=== PATIENT | male | born 1940 | race Caucasian/White ===

== ENCOUNTER 2020-12-28 15:53 | Inpatient (IN) ==
[2020-12-28] MEDS ORDERED: MORPHINE 4 MG/1 ML VIAL IV PRN (18:19)
[2020-12-28] MEDS ORDERED: DEXTROSE 50% 25 GM/50 ML VIAL IV PRN (18:19)
[2020-12-28] MEDS ORDERED: ONDANSETRON 4 MG/2 ML VIAL IV PRN (18:19)
[2020-12-28] MEDS ORDERED: GLUCAGON 1 MG VIAL IM PRN (18:19)
[2020-12-28] MEDS ORDERED: ENOXAPARIN 100 MG/ML SYRINGE SUBCUT ONE (18:19)
[2020-12-28] MEDS ORDERED: ACETAMINOPHEN 325 MG TABLET PO PRN (18:19)
[2020-12-28] MEDS: SODIUM CHLORIDE 0.9% 1,000 ML IV SCH (18:36)
[2020-12-28 19:23] LABS: Risk Ratio 6.43; Thyroid Stimulating Hormone 1.33 uIU/ml (0.358-3.74); VLDL CHOLESTEROL 39.6 MG/DL
[2020-12-28] MEDS: carvediloL 3.125 MG TABLET PO SCH (21:13)
[2020-12-28] MEDS: ATORVASTATIN 40 MG TABLET PO SCH (21:13)
[2020-12-29 05:18] LABS: Basophils # 0.1 10*3/uL (0.0-0.2); Eosinophils # 0.2 10*3/uL (0.0-0.87); Eosinophils % 3.2 % (0.00-10.9); Hematocrit 40.9 VOL% (42.0-52.0); Hemoglobin 13.6 GM/DL (14.0-18.0); Immature Granulocytes % 0.4 %; Immature Granulocytes Absolute 0.02 #; Lymphocytes # 1.9 10*3/uL (1.4-4.0); Lymphocytes % 37.9 % (21.2-54.2); Mean Corpuscular HGB Conc 33.3 GM/DL (32-36); Mean Platelet Volume 11.5 FL (9.6-12.0); Monocytes % 12.7 % (1.7-12.7); Neutrophils % 44.8 % (38.7-73.9); Platelet Count 151 T/CUMM (130-400); Red Blood Count 4.09 MC/CUMM (3.8-5.5); Red Cell Distribution Width 12.5 % (9.3-17.3)
[2020-12-29 05:38] LABS: Calcium 7.9 MG/DL (8.5-10.1); Potassium 3.4 MMOL/L (3.5-5.1)
[2020-12-29] MEDS ORDERED: ENOXAPARIN 100 MG/ML SYRINGE SUBCUT SCH (06:00)
[2020-12-29] MEDS ORDERED: DIAZEPAM 5 MG TABLET PO ONE (08:33)
[2020-12-29] MEDS ORDERED: diphenhydrAMINE CAP 25 MG CAPSULE PO ONE (08:33)
[2020-12-29] MEDS ORDERED: MAGNESIUM SULF RIDER 2 GM/50 ML PREMIX IV PRN (08:33)
[2020-12-29] MEDS ORDERED: POTASSIUM CHLORIDE RIDER 10 MEQ/100 ML PREMIX IV PRN (08:33)
[2020-12-29] MEDS ORDERED: ASPIRIN CHEW 81 MG TABLET PO SCH (09:00)
[2020-12-29] MEDS: lisinopriL 2.5 MG TABLET PO SCH (09:39)
[2020-12-29] MEDS: SODIUM CHLORIDE 0.9% 1,000 ML IV SCH ×2 (09:39→20:34)
[2020-12-29] MEDS: carvediloL 3.125 MG TABLET PO SCH ×2 (09:39→23:33)
[2020-12-29] MEDS: PANTOPRAZOLE 40 MG TABLET PO SCH (09:39)
[2020-12-29] MEDS ORDERED: HEPARIN/NACL 0.9% 2 UNITS/ML 2,000 UNIT/1,000 ML BAG IV ONE (11:58)
[2020-12-29] MEDS ORDERED: LIDOCAINE 1% 20 ML VIAL ONE (11:58)
[2020-12-29] MEDS ORDERED: fentaNYL 100 MCG/2 ML VIAL ONE (12:12)
[2020-12-29] MEDS ORDERED: MIDAZOLAM 2 MG/2 ML VIAL ONE (12:12)
[2020-12-29] MEDS ORDERED: ACETAMINOPHEN/CODEINE 300-30 MG TABLET PO PRN (12:53)
[2020-12-29] MEDS: NITROGLYCERIN SL 0.4 MG TABLET SL PRN (16:18)
[2020-12-29] MEDS: ATORVASTATIN 40 MG TABLET PO SCH (20:23)
[2020-12-30 06:23] LABS: Basophils % 0.5 % (0.0-0.8); Eosinophils # 0.2 10*3/uL (0.0-0.87); Eosinophils % 2.7 % (0.00-10.9); Hematocrit 42.8 VOL% (42.0-52.0); Hemoglobin 13.9 GM/DL (14.0-18.0); Immature Granulocytes % 0.4 %; Immature Granulocytes Absolute 0.02 #; Lymphocytes # 1.5 10*3/uL (1.4-4.0); Lymphocytes % 26.7 % (21.2-54.2); Mean Corpuscular HGB Conc 32.5 GM/DL (32-36); Mean Corpuscular Volume 100.5 FL (87-102); Mean Platelet Volume 11.6 FL (9.6-12.0); Monocytes % 13.2 % (1.7-12.7); Neutrophils % 56.5 % (38.7-73.9); Platelet Count 135 T/CUMM (130-400); Red Blood Count 4.26 MC/CUMM (3.8-5.5); Red Cell Distribution Width 12.5 % (9.3-17.3); White Blood Count 5.5 T/CUMM (4-12)
[2020-12-30 06:38] LABS: Calcium 8.7 MG/DL (8.5-10.1); Osmolality,Calculated 283.3 MOS/KG (273-304); Potassium 3.9 MMOL/L (3.5-5.1)
[2020-12-30] MEDS ORDERED: ENOXAPARIN 40 MG/0.4 ML SYRINGE SUBCUT ONE (07:36)
[2020-12-30] MEDS: lisinopriL 2.5 MG TABLET PO SCH (09:10)
[2020-12-30] MEDS: ASPIRIN 325 MG TABLET PO SCH (09:11)
[2020-12-30] MEDS: carvediloL 3.125 MG TABLET PO SCH ×2 (09:11→20:31)
[2020-12-30] MEDS: ISOSORBIDE MONONITRATE 30 MG TABLET PO SCH (09:11)
[2020-12-30] MEDS: PANTOPRAZOLE 40 MG TABLET PO SCH (09:11)
[2020-12-30] MEDS ORDERED: CLORAZEPATE 7.5 MG TABLET PO PRN (16:50)
[2020-12-30] MEDS ORDERED: ZALEPLON 5 MG CAPSULE PO PRN (16:50)
[2020-12-30] MEDS: ATORVASTATIN 40 MG TABLET PO SCH (20:30)
[2020-12-30] MEDS: ENOXAPARIN 100 MG/ML SYRINGE SUBCUT SCH (20:31)
[2020-12-30] MEDS: ASCORBIC ACID 500 MG TABLET PO SCH (20:31)
[2020-12-31] MEDS: ASPIRIN 325 MG TABLET PO SCH (08:38)
[2020-12-31] MEDS: ISOSORBIDE MONONITRATE 30 MG TABLET PO SCH (08:38)
[2020-12-31] MEDS: lisinopriL 2.5 MG TABLET PO SCH (08:38)
[2020-12-31] MEDS: ASCORBIC ACID 500 MG TABLET PO SCH ×2 (08:39→21:09)
[2020-12-31] MEDS: ENOXAPARIN 100 MG/ML SYRINGE SUBCUT SCH ×2 (08:39→21:09)
[2020-12-31] MEDS: PANTOPRAZOLE 40 MG TABLET PO SCH (08:39)
[2020-12-31] MEDS: carvediloL 3.125 MG TABLET PO SCH ×2 (08:39→21:09)
[2020-12-31] MEDS ORDERED: ENOXAPARIN 40 MG/0.4 ML SYRINGE SUBCUT SCH (09:00)
[2020-12-31] MEDS: NITROGLYCERIN SL 0.4 MG TABLET SL PRN ×2 (19:31→19:41)
[2020-12-31] MEDS: ATORVASTATIN 40 MG TABLET PO SCH (21:09)
[2020-12-31] MEDS: diphenhydrAMINE CAP 50 MG CAPSULE PO PRN (21:09)
[2020-12-31] MEDS: MELATONIN 3 MG TABLET PO PRN (21:09)
[2021-01-01 09:08] LABS: Basophils % 0.8 % (0.0-0.8); Eosinophils # 0.1 10*3/uL (0.0-0.87); Eosinophils % 2.7 % (0.00-10.9); Hematocrit 44.4 VOL% (42.0-52.0); Hemoglobin 14.6 GM/DL (14.0-18.0); Immature Granulocytes % 0.2 %; Immature Granulocytes Absolute 0.01 #; Lymphocytes # 1.4 10*3/uL (1.4-4.0); Lymphocytes % 26.7 % (21.2-54.2); Mean Corpuscular HGB Conc 32.9 GM/DL (32-36); Mean Corpuscular Volume 100.2 FL (87-102); Mean Platelet Volume 11.3 FL (9.6-12.0); Monocytes % 10.3 % (1.7-12.7); Neutrophils % 59.3 % (38.7-73.9); Platelet Count 146 T/CUMM (130-400); Red Blood Count 4.43 MC/CUMM (3.8-5.5); Red Cell Distribution Width 12.3 % (9.3-17.3); White Blood Count 5.1 T/CUMM (4-12)
[2021-01-01] MEDS: ISOSORBIDE MONONITRATE 30 MG TABLET PO SCH (09:16)
[2021-01-01] MEDS: PANTOPRAZOLE 40 MG TABLET PO SCH (09:17)
[2021-01-01] MEDS: lisinopriL 2.5 MG TABLET PO SCH (09:17)
[2021-01-01] MEDS: ASCORBIC ACID 500 MG TABLET PO SCH ×2 (09:17→20:52)
[2021-01-01] MEDS: ASPIRIN 325 MG TABLET PO SCH (09:18)
[2021-01-01] MEDS: carvediloL 3.125 MG TABLET PO SCH ×2 (09:18→23:47)
[2021-01-01] MEDS: ENOXAPARIN 100 MG/ML SYRINGE SUBCUT SCH ×2 (09:18→20:52)
[2021-01-01 09:22] LABS: Calcium 9.1 MG/DL (8.5-10.1); Osmolality,Calculated 284.4 MOS/KG (273-304); Potassium 4.1 MMOL/L (3.5-5.1)
[2021-01-01] MEDS: MELATONIN 3 MG TABLET PO PRN (20:51)
[2021-01-01] MEDS: ATORVASTATIN 40 MG TABLET PO SCH (20:52)
[2021-01-01] MEDS: diphenhydrAMINE CAP 50 MG CAPSULE PO PRN (20:52)
[2021-01-02] MEDS: PANTOPRAZOLE 40 MG TABLET PO SCH (09:07)
[2021-01-02] MEDS: ISOSORBIDE MONONITRATE 30 MG TABLET PO SCH (09:07)
[2021-01-02] MEDS: ASCORBIC ACID 500 MG TABLET PO SCH ×2 (09:07→20:34)
[2021-01-02] MEDS: ASPIRIN 325 MG TABLET PO SCH (09:07)
[2021-01-02] MEDS: carvediloL 3.125 MG TABLET PO SCH (09:08)
[2021-01-02 09:30] LABS: Basophils % 0.8 % (0.0-0.8); Eosinophils # 0.2 10*3/uL (0.0-0.87); Eosinophils % 3.3 % (0.00-10.9); Hemoglobin 14.3 GM/DL (14.0-18.0); Immature Granulocytes % 0.2 %; Immature Granulocytes Absolute 0.01 #; Lymphocytes # 1.5 10*3/uL (1.4-4.0); Mean Corpuscular HGB Conc 33.3 GM/DL (32-36); Mean Corpuscular Volume 98.6 FL (87-102); Mean Platelet Volume 11.5 FL (9.6-12.0); Monocytes % 7.4 % (1.7-12.7); Neutrophils % 58.3 % (38.7-73.9); Platelet Count 157 T/CUMM (130-400); Red Blood Count 4.36 MC/CUMM (3.8-5.5); Red Cell Distribution Width 12.2 % (9.3-17.3); White Blood Count 4.8 T/CUMM (4-12)
[2021-01-02 10:24] LABS: Calcium 8.9 MG/DL (8.5-10.1); Osmolality,Calculated 283.7 MOS/KG (273-304); Potassium 3.8 MMOL/L (3.5-5.1)
[2021-01-02] MEDS ORDERED: POTASSIUM CHLORIDE 20 MEQ TABLET PO PRN (10:42)
[2021-01-02] MEDS ORDERED: MAGNESIUM SULF RIDER 2 GM/50 ML PREMIX IV PRN (10:47)
[2021-01-02] MEDS: MELATONIN 3 MG TABLET PO PRN (20:34)
[2021-01-02] MEDS: diphenhydrAMINE CAP 50 MG CAPSULE PO PRN (20:34)
[2021-01-02] MEDS: ATORVASTATIN 40 MG TABLET PO SCH (20:34)
[2021-01-03 05:07] LABS: Basophils # 0.1 10*3/uL (0.0-0.2); Basophils % 0.9 % (0.0-0.8); Eosinophils # 0.3 10*3/uL (0.0-0.87); Eosinophils % 4.5 % (0.00-10.9); Hematocrit 43.2 VOL% (42.0-52.0); Hemoglobin 14.4 GM/DL (14.0-18.0); Immature Granulocytes % 0.4 %; Immature Granulocytes Absolute 0.02 #; Lymphocytes # 1.6 10*3/uL (1.4-4.0); Lymphocytes % 29.2 % (21.2-54.2); Mean Corpuscular HGB Conc 33.3 GM/DL (32-36); Mean Corpuscular Volume 98.6 FL (87-102); Mean Platelet Volume 11.6 FL (9.6-12.0); Monocytes % 14.6 % (1.7-12.7); Neutrophils % 50.4 % (38.7-73.9); Platelet Count 161 T/CUMM (130-400); Red Blood Count 4.38 MC/CUMM (3.8-5.5); Red Cell Distribution Width 12.3 % (9.3-17.3); White Blood Count 5.5 T/CUMM (4-12)
[2021-01-03 05:55] LABS: Osmolality,Calculated 283.3 MOS/KG (273-304); Potassium 4.2 MMOL/L (3.5-5.1)
[2021-01-03 05:59] LABS: Albumin 3.5 G/DL (3.4-5.0); Bilirubin,Total 1.1 MG/DL (0.2-1.0); Calcium 8.9 MG/DL (8.5-10.1); Osmolality,Calculated 283.3 MOS/KG (273-304); Potassium 4.2 MMOL/L (3.5-5.1); Total Protein 7.2 G/DL (6.4-8.2)
[2021-01-03] MEDS: ASCORBIC ACID 500 MG TABLET PO SCH ×2 (08:26→20:30)
[2021-01-03] MEDS: ASPIRIN 325 MG TABLET PO SCH (08:26)
[2021-01-03] MEDS: PANTOPRAZOLE 40 MG TABLET PO SCH (08:27)
[2021-01-03] MEDS: ISOSORBIDE MONONITRATE 30 MG TABLET PO SCH (08:27)
[2021-01-03] MEDS: CHLORHEXIDINE 0.12% ORAL RINSE 60 ML BOTTLE SWISH/SPIT SCH ×2 (08:29→20:32)
[2021-01-03] MEDS: CHLORHEXIDINE 4% SOLN 118 ML BOTTLE TOP SCH ×2 (08:30→15:48)
[2021-01-03 09:46] LABS: ABG Base Excess -0.2 MMOL/L (-2.5-2.5); ABG HCO3 24.2 MMOL/L (20-26); ABG Oxygen Saturation 97.5 % (95-100); ABG PH 7.396 (7.35-7.45); ABG PO2 91.2 MM HG (80-95); ABG TCO2 20.8 MMOL/L (23-27); Allen Test Positive; Pt O2 Delivery Device Room Air
[2021-01-03] MEDS ORDERED: SODIUM CHLORIDE 0.9% 1,000 ML IV SCH (12:00)
[2021-01-03] MEDS: ATORVASTATIN 40 MG TABLET PO SCH (20:30)
[2021-01-03] MEDS: MELATONIN 3 MG TABLET PO PRN (20:32)
[2021-01-03] MEDS: diphenhydrAMINE CAP 50 MG CAPSULE PO PRN (20:32)
[2021-01-04] MEDS ORDERED: PAPAVERINE 60 MG/2 ML VIAL ONE (04:21)
[2021-01-04] MEDS ORDERED: VANCOMYCIN 1,000 MG VIAL ONE (04:22)
[2021-01-04] MEDS ORDERED: VANCOMYCIN 500 MG VIAL ONE (04:22)
[2021-01-04] MEDS ORDERED: CEFUROXIME INJ 1,500 MG in SODIUM CHLORIDE 0.9% 100 ML IV ONE (05:00)
[2021-01-04] MEDS: CHLORHEXIDINE 4% SOLN 118 ML BOTTLE TOP SCH (05:25)
[2021-01-04] MEDS ORDERED: DIAZEPAM 5 MG TABLET PO ONE (06:00)
[2021-01-04] MEDS ORDERED: SEVOFLURANE 1 UNIT/15 MINUTE INH ONE (06:08)
[2021-01-04] MEDS ORDERED: SODIUM CHLORIDE 0.9% 1,000 ML IV ONE (06:08)
[2021-01-04] MEDS ORDERED: MINERAL OIL/PETROLATUM OPH OINT 3.5 GM TUBE ONE (06:08)
[2021-01-04] MEDS ORDERED: HEPARIN/NACL 0.9% 2 UNITS/ML 1,000 UNIT/500 ML BAG IV ONE (06:08)
[2021-01-04] MEDS ORDERED: SODIUM CHLORIDE 0.9% 200 ML IV ONE (06:08)
[2021-01-04] MEDS ORDERED: LACTATED RINGERS 1,000 ML IV ONE (06:08)
[2021-01-04] MEDS ORDERED: PHENYLEPHRINE 10 MG/1 ML VIAL IV ONE (06:10)
[2021-01-04 06:12] LABS: Calcium 9.2 MG/DL (8.5-10.1); Osmolality,Calculated 286.1 MOS/KG (273-304); Potassium 4.2 MMOL/L (3.5-5.1)
[2021-01-04] MEDS ORDERED: SODIUM CHLORIDE 0.9% 250 ML IV ONE ×2 (06:13)
[2021-01-04] MEDS ORDERED: AMINOCAPROIC ACID 5,000 MG/20 ML VIAL ONE ×4 (06:14)
[2021-01-04] MEDS ORDERED: CALCIUM CHLORIDE 1,000 MG/10 ML VIAL IV ONE (06:16)
[2021-01-04] MEDS ORDERED: VECURONIUM 10 MG VIAL IV ONE ×4 (06:17→09:34)
[2021-01-04] MEDS ORDERED: ETOMIDATE 40 MG/20 ML VIAL IV ONE (06:18)
[2021-01-04] MEDS ORDERED: LIDOCAINE 2% 5 ML VIAL ONE ×2 (06:20→10:45)
[2021-01-04] MEDS ORDERED: MIDAZOLAM 10 MG/2 ML VIAL ONE ×4 (06:21→09:34)
[2021-01-04] MEDS ORDERED: SUFentanil 250 MCG/5 ML AMP ONE ×2 (06:22→07:47)
[2021-01-04] MEDS ORDERED: ePHEDrine 50 MG/ML VIAL ONE (07:03)
[2021-01-04 07:33] LABS: ABG Base Excess 0.8 MMOL/L (-2.5-2.5); ABG HCO3 25.1 MMOL/L (20-26); ABG PCO2 33.6 MM HG (35-48); ABG PH 7.461 (7.35-7.45); ABG TCO2 20.7 MMOL/L (23-27); Glucose Heart Surgery 101 MG/DL (74-106); Hematocrit Heart Surgery 41.3 PERCENT (42-52); Hemoglobin Heart Surgery 13.5 G/DL (14.0-18.0); Ionized Calcium Arterial 1.13 MMOL/L (1.21-1.46); PCO2 Patient Temp Arterial 33.6 MMHG; PH Patient Temp Arterial 7.461; Patient Temperature 37 CELCIUS; Sodium Heart/CVR 139 MMOL/L (135-145)
[2021-01-04 08:46] LABS: Bacteria,Urine Occasional /HPF (Few); Bilirubin,Urine Negative (Negative); Blood, Urine Negative (Negative); Glucose,Urine (UA) Negative (Negative); Ketones,Urine Negative (Negative); Mucus,Urine Many /LPF (Occasional); Nitrite,Urine Negative (Negative); Protein,Urine Negative; RBC,Urine 1 /HPF (0-4); Urine Appearance CLEAR (Clear); Urine Color Yellow (Yellow); Urine Specific Gravity 1.017 (1.001-1.035); Urine Urobilinogen < 2.0 EU/DL (0.2-1.0)
[2021-01-04] MEDS: CHLORHEXIDINE 0.12% ORAL RINSE 60 ML BOTTLE SWISH/SPIT SCH ×2 (09:00→21:04)
[2021-01-04] MEDS: PANTOPRAZOLE 40 MG TABLET PO SCH (09:00)
[2021-01-04] MEDS: ASPIRIN 325 MG TABLET PO SCH (09:00)
[2021-01-04] MEDS: ISOSORBIDE MONONITRATE 30 MG TABLET PO SCH (09:00)
[2021-01-04] MEDS: ASCORBIC ACID 500 MG TABLET PO SCH (09:00)
[2021-01-04 09:08] LABS: Hematocrit Heart Surgery 29.9 PERCENT (42-52); Hemoglobin Heart Surgery 9.7 G/DL (14.0-18.0); PCO2 Patient Temp Venous 32.7 MM HG; PH Patient Temp Venous 7.486; PO2 Patient Temp Venous 39.7 MM HG; Potassium Heart/CVR 5.1 MMOL/L (3.5-5.1); VBG Base Excess 1.7 MEQ/L (0-4); VBG HCO3 25.8 MEQ/L (24-28); VBG Oxygen Saturation 87.1 %; VBG PCO2 37.8 MMHG (41-51); VBG PH 7.442; VBG PO2 48.8 MMHG (17-40); VBG Total CO2 23.5 MMOL/L
[2021-01-04] MEDS ORDERED: diphenhydrAMINE 50 MG/1 ML VIAL ONE (09:34)
[2021-01-04 09:40] LABS: Hemoglobin Heart Surgery 10.4 G/DL (14.0-18.0); PCO2 Patient Temp Venous 34.2 MM HG; PH Patient Temp Venous 7.463; PO2 Patient Temp Venous 39.4 MM HG; Potassium Heart/CVR 4.6 MMOL/L (3.5-5.1); VBG Base Excess 1.1 MEQ/L (0-4); VBG HCO3 25.2 MEQ/L (24-28); VBG Oxygen Saturation 85.3 %; VBG PCO2 39.5 MMHG (41-51); VBG PH 7.419; VBG PO2 48.4 MMHG (17-40); VBG Total CO2 23.2 MMOL/L
[2021-01-04] MEDS ORDERED: FAMOTIDINE 20 MG/2 ML VIAL IV ONE (09:52)
[2021-01-04 10:11] LABS: Hematocrit Heart Surgery 33.9 PERCENT (42-52); PCO2 Patient Temp Venous 36.1 MM HG; PH Patient Temp Venous 7.452; PO2 Patient Temp Venous 38.5 MM HG; Potassium Heart/CVR 4.9 MMOL/L (3.5-5.1); VBG Base Excess 1.5 MEQ/L (0-4); VBG HCO3 25.3 MEQ/L (24-28); VBG Oxygen Saturation 76.7 %; VBG PCO2 36.1 MMHG (41-51); VBG PH 7.452; VBG PO2 38.5 MMHG (17-40); VBG Total CO2 22.6 MMOL/L
[2021-01-04] MEDS ORDERED: MANNITOL 100 GM/500 ML BAG IV ONE (10:45)
[2021-01-04] MEDS ORDERED: MAGNESIUM SULFATE 5 GM/10 ML VIAL IV ONE (10:45)
[2021-01-04] MEDS ORDERED: ALBUMIN 25% 25 GM/100 ML VIAL IV ONE (10:45)
[2021-01-04] MEDS ORDERED: DEXTROSE 5% KCL 20 MEQ 20 MEQ/1,000 ML BAG IV ONE (10:45)
[2021-01-04] MEDS ORDERED: PROTAMINE SULFATE 250 MG/25 ML VIAL IV ONE (10:45)
[2021-01-04] MEDS ORDERED: methylPREDNISolone SOD SUC 1,000 MG/8 ML VIAL ONE (10:45)
[2021-01-04] MEDS ORDERED: HEPARIN 10,000 UNIT/10 ML VIAL ONE (10:46)
[2021-01-04] MEDS ORDERED: PROTAMINE SULFATE 50 MG/5 ML VIAL IV ONE ×2 (10:46→12:09)
[2021-01-04] MEDS ORDERED: SODIUM BICARBONATE 50 MEQ/50 ML VIAL IV ONE ×2 (10:46→11:15)
[2021-01-04] MEDS ORDERED: FUROSEMIDE 20 MG/2 ML VIAL ONE (10:46)
[2021-01-04 10:51] LABS: ABG Base Excess -0.5 MMOL/L (-2.5-2.5); ABG PCO2 32.9 MM HG (35-48); ABG PH 7.448 (7.35-7.45); ABG TCO2 20.2 MMOL/L (23-27); Glucose Heart Surgery 188 MG/DL (74-106); Hematocrit Heart Surgery 35.9 PERCENT (42-52); Hemoglobin Heart Surgery 11.6 G/DL (14.0-18.0); Ionized Calcium Arterial 1.27 MMOL/L (1.21-1.46); PCO2 Patient Temp Arterial 32.9 MMHG; PH Patient Temp Arterial 7.448; Patient Temperature 37 CELCIUS; Potassium Heart/CVR 3.7 MMOL/L (3.5-5.1); Sodium Heart/CVR 135 MMOL/L (135-145)
[2021-01-04] MEDS ORDERED: MORPHINE 10 MG/1 ML VIAL IV PRN (11:10)
[2021-01-04] MEDS ORDERED: MAGNESIUM SULF RIDER 2 GM/50 ML PREMIX IV PRN (11:10)
[2021-01-04] MEDS ORDERED: POTASSIUM CHLORIDE RIDER 10 MEQ/100 ML PREMIX IV PRN (11:10)
[2021-01-04] MEDS ORDERED: MORPHINE 4 MG/1 ML VIAL IV PRN (11:10)
[2021-01-04] MEDS ORDERED: MAGNESIUM SULF RIDER 4 GM/100 ML PREMIX IV PRN (11:10)
[2021-01-04] MEDS ORDERED: VECURONIUM 10 MG VIAL IV PRN ×2 (11:10)
[2021-01-04] MEDS ORDERED: CHLORHEXIDINE 4% SOLN 118 ML BOTTLE TOP PRN (11:10)
[2021-01-04] MEDS ORDERED: ACETAMINOPHEN 650 MG SUPP RECTAL PRN (11:10)
[2021-01-04] MEDS ORDERED: MIDAZOLAM 10 MG/2 ML VIAL IV PRN (11:10)
[2021-01-04] MEDS ORDERED: DEXTROSE 50% 25 GM/50 ML VIAL IV PRN ×2 (11:10)
[2021-01-04] MEDS ORDERED: INSULIN REGULAR 100 UNIT/ML IV PRN (11:10)
[2021-01-04] MEDS ORDERED: INSULIN REGULAR 100 UNIT/ML IV ONE (11:10)
[2021-01-04] MEDS ORDERED: CALCIUM CHLORIDE 1,000 MG/10 ML SYRINGE IV PRN (11:10)
[2021-01-04] MEDS ORDERED: PHENYLEPHRINE DRIP 40 MG/250 ML PREMIX IV PRN (11:10)
[2021-01-04] MEDS ORDERED: ONDANSETRON 4 MG/2 ML VIAL IV PRN (11:10)
[2021-01-04] MEDS ORDERED: NITROPRUSSIDE 100 MG in DEXTROSE 5% 250 ML IV PRN (11:10)
[2021-01-04] MEDS ORDERED: NITROPRUSSIDE 50 MG/2 ML VIAL ONE (11:15)
[2021-01-04] MEDS ORDERED: SODIUM CHLORIDE 0.45% 1,000 ML IV SCH ×2 (11:30)
[2021-01-04] MEDS ORDERED: INSULIN REGULAR DRIP 100 ML IV SCH (11:30)
[2021-01-04 12:12] LABS: ABG HCO3 25.3 MMOL/L (20-26); ABG Oxygen Saturation 99.1 % (95-100); ABG PH 7.478 (7.35-7.45); ABG TCO2 20.5 MMOL/L (23-27); Glucose Heart Surgery 167 MG/DL (74-106); Hemoglobin Heart Surgery 13.4 G/DL (14.0-18.0); Potassium Heart/CVR 3.4 MMOL/L (3.5-5.1)
[2021-01-04 12:14] LABS: Basophils % 0.2 % (0.0-0.8); Eosinophils # 0.1 10*3/uL (0.0-0.87); Hematocrit 39.1 VOL% (42.0-52.0); Immature Granulocytes % 1.1 %; Immature Granulocytes Absolute 0.09 #; Lymphocytes % 11.5 % (21.2-54.2); Mean Corpuscular HGB Conc 33.2 GM/DL (32-36); Mean Platelet Volume 11.8 FL (9.6-12.0); Monocytes % 11.5 % (1.7-12.7); Neutrophils % 74.7 % (38.7-73.9); Platelet Count 127 T/CUMM (130-400); Red Blood Count 3.95 MC/CUMM (3.8-5.5); Red Cell Distribution Width 12.3 % (9.3-17.3); White Blood Count 8.4 T/CUMM (4-12)
[2021-01-04] MEDS: POTASSIUM CHLORIDE RIDER 20 MEQ/100 ML PREMIX IV PRN ×6 (12:15→22:50)
[2021-01-04 12:24] LABS: INR 1.2; Partial Thromboplastin Time 27.1 SECS (23.9-33.8)
[2021-01-04] MEDS: ALBUMIN 5% 12.5 GM/250 ML VIAL IV PRN ×3 (12:30→21:26)
[2021-01-04 12:32] LABS: CKMB % 7.8 %
[2021-01-04 12:35] LABS: High Sensitive Troponin I* 13812.2 ng/L (0-78)
[2021-01-04 12:43] LABS: Albumin 3.7 G/DL (3.4-5.0); Bilirubin,Total 1.1 MG/DL (0.2-1.0); Calcium 9.2 MG/DL (8.5-10.1); Osmolality,Calculated 280.7 MOS/KG (273-304); Potassium 3.5 MMOL/L (3.5-5.1); Total Protein 6.9 G/DL (6.4-8.2)
[2021-01-04 14:01] LABS: ABG Base Excess 0.4 MMOL/L (-2.5-2.5); ABG HCO3 24.8 MMOL/L (20-26); ABG PCO2 30.2 MM HG (35-48); ABG PH 7.488 (7.35-7.45); Glucose Heart Surgery 179 MG/DL (74-106); Hematocrit Heart Surgery 38.1 PERCENT (42-52); Hemoglobin Heart Surgery 12.4 G/DL (14.0-18.0)
[2021-01-04 15:55] LABS: ABG Base Excess -0.6 MMOL/L (-2.5-2.5); ABG HCO3 23.9 MMOL/L (20-26); ABG PCO2 36.7 MM HG (35-48); ABG PH 7.416 (7.35-7.45); ABG PO2 98.9 MM HG (80-95); Glucose Heart Surgery 171 MG/DL (74-106); Hematocrit Heart Surgery 35.9 PERCENT (42-52); Hemoglobin Heart Surgery 11.6 G/DL (14.0-18.0)
[2021-01-04] MEDS: MIDAZOLAM 2 MG/2 ML VIAL IV PRN ×3 (15:58→19:10)
[2021-01-04] MEDS: LACTATED RINGERS 250 ML IV PRN ×2 (16:00→17:25)
[2021-01-04 18:09] LABS: ABG HCO3 23.5 MMOL/L (20-26); ABG PCO2 42.4 MM HG (35-48); ABG PH 7.367 (7.35-7.45); ABG TCO2 21.7 MMOL/L (23-27); Glucose Heart Surgery 160 MG/DL (74-106); Hematocrit Heart Surgery 35.7 PERCENT (42-52); Hemoglobin Heart Surgery 11.6 G/DL (14.0-18.0); Potassium Heart/CVR 4.4 MMOL/L (3.5-5.1)
[2021-01-04] MEDS ORDERED: FUROSEMIDE 40 MG/4 ML VIAL IV ONE ×2 (18:25→19:00)
[2021-01-04] MEDS ORDERED: FUROSEMIDE 20 MG/2 ML VIAL IV PRN (18:26)
[2021-01-04] MEDS ORDERED: FUROSEMIDE 40 MG/4 ML VIAL IV PRN ×2 (18:34→19:00)
[2021-01-04] MEDS: CEFUROXIME INJ 1,500 MG in SODIUM CHLORIDE 0.9% 100 ML IV SCH (18:55)
[2021-01-04] MEDS ORDERED: FUROSEMIDE 20 MG/2 ML VIAL IV ONE (19:00)
[2021-01-04] MEDS ORDERED: HALOPERIDOL 5 MG/ML AMP IV ONE (20:19)
[2021-01-04 20:34] LABS: ABG Base Excess -1.2 MMOL/L (-2.5-2.5); ABG HCO3 23.5 MMOL/L (20-26); ABG Oxygen Saturation 99.8 % (95-100); ABG PCO2 38.9 MM HG (35-48); ABG TCO2 21.1 MMOL/L (23-27); Glucose Heart Surgery 145 MG/DL (74-106); Hematocrit Heart Surgery 34.1 PERCENT (42-52); Potassium Heart/CVR 4.2 MMOL/L (3.5-5.1)
[2021-01-04 21:49] LABS: High Sensitive Troponin I* 9526.8 ng/L (0-78)
[2021-01-04 22:46] LABS: ABG Base Excess 0.1 MMOL/L (-2.5-2.5); ABG HCO3 24.5 MMOL/L (20-26); ABG PH 7.393 (7.35-7.45); ABG PO2 99.5 MM HG (80-95); ABG TCO2 22.4 MMOL/L (23-27); Glucose Heart Surgery 129 MG/DL (74-106); Hematocrit Heart Surgery 34.1 PERCENT (42-52); Hemoglobin Heart Surgery 11.1 G/DL (14.0-18.0)
[2021-01-05 00:34] LABS: ABG Base Excess -0.3 MMOL/L (-2.5-2.5); ABG HCO3 24.2 MMOL/L (20-26); ABG Oxygen Saturation 98.6 % (95-100); ABG PCO2 39.1 MM HG (35-48); ABG PH 7.402 (7.35-7.45); ABG TCO2 21.8 MMOL/L (23-27); Glucose Heart Surgery 118 MG/DL (74-106); Hematocrit Heart Surgery 34.2 PERCENT (42-52); Hemoglobin Heart Surgery 11.1 G/DL (14.0-18.0); Potassium Heart/CVR 4.2 MMOL/L (3.5-5.1)
[2021-01-05] MEDS: POTASSIUM CHLORIDE RIDER 20 MEQ/100 ML PREMIX IV PRN ×2 (00:44→04:29)
[2021-01-05 04:12] LABS: ABG Base Excess -0.4 MMOL/L (-2.5-2.5); ABG HCO3 24.1 MMOL/L (20-26); ABG Oxygen Saturation 97.4 % (95-100); ABG PCO2 38.9 MM HG (35-48); ABG PH 7.401 (7.35-7.45); ABG PO2 89.8 MM HG (80-95); ABG TCO2 21.8 MMOL/L (23-27); Glucose Heart Surgery 143 MG/DL (74-106); Hematocrit Heart Surgery 33.1 PERCENT (42-52); Hemoglobin Heart Surgery 10.7 G/DL (14.0-18.0); Potassium Heart/CVR 4.2 MMOL/L (3.5-5.1)
[2021-01-05 04:16] LABS: Basophils % 0.1 % (0.0-0.8); Hematocrit 32.5 VOL% (42.0-52.0); Hemoglobin 10.6 GM/DL (14.0-18.0); Immature Granulocytes % 0.5 %; Immature Granulocytes Absolute 0.07 #; Lymphocytes # 0.8 10*3/uL (1.4-4.0); Mean Corpuscular HGB Conc 32.6 GM/DL (32-36); Mean Corpuscular Volume 101.2 FL (87-102); Monocytes % 4.4 % (1.7-12.7); Platelet Count 148 T/CUMM (130-400); Red Blood Count 3.21 MC/CUMM (3.8-5.5); Red Cell Distribution Width 12.4 % (9.3-17.3); White Blood Count 13.3 T/CUMM (4-12)
[2021-01-05 04:36] LABS: Hypochromasia 1+; Lymphocytes 3 % (20-55); Microcytosis 1+; Platelet Estimate Adequate; Segmented Neutrophils 93 % (50-85); Total Cells Counted 100
[2021-01-05 04:53] LABS: Calcium 8.6 MG/DL (8.5-10.1); Osmolality,Calculated 281.5 MOS/KG (273-304); Potassium 4.4 MMOL/L (3.5-5.1)
[2021-01-05 04:57] LABS: Albumin 3.7 G/DL (3.4-5.0); Bilirubin,Direct 0.19 MG/DL (0.0-0.20); Bilirubin,Total 0.7 MG/DL (0.2-1.0); Calcium 8.8 MG/DL (8.5-10.1); Osmolality,Calculated 284.4 MOS/KG (273-304); Potassium 4.2 MMOL/L (3.5-5.1); Total Protein 6.5 G/DL (6.4-8.2)
[2021-01-05 05:18] LABS: CKMB % 5.5 %; High Sensitive Troponin I* 7888.3 ng/L (0-78)
[2021-01-05 05:37] LABS: ABG Base Excess -2.1 MMOL/L (-2.5-2.5); ABG HCO3 21.9 MMOL/L (20-26); ABG Oxygen Saturation 96.6 % (95-100); ABG PCO2 34.5 MM HG (35-48); ABG PO2 89.7 MM HG (80-95); ABG TCO2 22.9 MMOL/L (23-27); Glucose Heart Surgery 130 MG/DL (74-106); Hemoglobin Heart Surgery 11.3 G/DL (14.0-18.0)
[2021-01-05] MEDS: CEFUROXIME INJ 1,500 MG in SODIUM CHLORIDE 0.9% 100 ML IV SCH ×2 (06:31→21:24)
[2021-01-05 07:46] LABS: ABG HCO3 24.4 MMOL/L (20-26); ABG Oxygen Saturation 96.5 % (95-100); ABG PCO2 38.9 MM HG (35-48); ABG PH 7.408 (7.35-7.45); ABG PO2 82.3 MM HG (80-95); ABG TCO2 22.1 MMOL/L (23-27); Glucose Heart Surgery 150 MG/DL (74-106); Hematocrit Heart Surgery 32.5 PERCENT (42-52); Hemoglobin Heart Surgery 10.5 G/DL (14.0-18.0); Potassium Heart/CVR 4.3 MMOL/L (3.5-5.1)
[2021-01-05] MEDS ORDERED: DEXTROSE 50% 25 GM/50 ML VIAL IV PRN (09:35)
[2021-01-05] MEDS ORDERED: ZALEPLON 5 MG CAPSULE PO PRN (09:35)
[2021-01-05] MEDS ORDERED: oxyCODONE/ACETAMINOPHEN 5-325 MG TABLET PO PRN (09:35)
[2021-01-05] MEDS ORDERED: MAGNESIUM SULF RIDER 2 GM/50 ML PREMIX IV PRN (09:35)
[2021-01-05] MEDS ORDERED: GLUCAGON 1 MG VIAL IM PRN (09:35)
[2021-01-05] MEDS ORDERED: ACETAMINOPHEN 325 MG TABLET PO PRN (09:35)
[2021-01-05] MEDS ORDERED: ALUMINUM/MAGNES/SIMETH MAX STR 30 ML UDCUP PO PRN (09:35)
[2021-01-05] MEDS ORDERED: MAGNESIUM SULF RIDER 4 GM/100 ML PREMIX IV PRN (09:35)
[2021-01-05] MEDS ORDERED: SODIUM CHLOR 0.45% KCL 20 MEQ 20 MEQ/1,000 ML BAG IV SCH (09:35)
[2021-01-05] MEDS ORDERED: MAGNESIUM HYDROXIDE SUSP 30 ML UDCUP PO PRN (09:35)
[2021-01-05] MEDS ORDERED: ONDANSETRON 4 MG/2 ML VIAL IV PRN (09:35)
[2021-01-05] MEDS ORDERED: POTASSIUM CHLORIDE 20 MEQ TABLET PO PRN (09:35)
[2021-01-05] MEDS: ASPIRIN EC 325 MG TABLET PO SCH (10:38)
[2021-01-05] MEDS: CELECOXIB 200 MG CAPSULE PO SCH (10:38)
[2021-01-05] MEDS: DOCUSATE SODIUM 100 MG CAPSULE PO SCH (10:38)
[2021-01-05] MEDS: PANTOPRAZOLE 40 MG TABLET PO SCH (10:38)
[2021-01-05] MEDS: FERROUS SULFATE 325 MG TABLET PO SCH (10:38)
[2021-01-05] MEDS: GABAPENTIN 600 MG TABLET PO SCH (10:38)
[2021-01-05] MEDS: CHLORHEXIDINE 0.12% ORAL RINSE 60 ML BOTTLE SWISH/SPIT SCH ×3 (10:40→20:49)
[2021-01-05 10:57] LABS: CKMB % 5.3 %
[2021-01-05 11:00] LABS: High Sensitive Troponin I* 10771.3 ng/L (0-78)
[2021-01-05] MEDS: ASCORBIC ACID 500 MG TABLET PO SCH ×2 (13:21→20:48)
[2021-01-05] MEDS: INSULIN REGULAR 100 UNIT/ML SUBCUT SCH ×3 (13:21→21:26)
[2021-01-05 16:06] LABS: CKMB % 4.4 %; High Sensitive Troponin I* 11654.3 ng/L (0-78)
[2021-01-05] MEDS: ATORVASTATIN 40 MG TABLET PO SCH (20:48)
[2021-01-06] MEDS: INSULIN REGULAR 100 UNIT/ML SUBCUT SCH ×6 (00:33→20:42)
[2021-01-06] MEDS ORDERED: FUROSEMIDE 40 MG/4 ML VIAL IV ONE (06:00)
[2021-01-06 07:30] LABS: Albumin 3.2 G/DL (3.4-5.0); Bilirubin,Direct 0.18 MG/DL (0.0-0.20); Bilirubin,Total 0.7 MG/DL (0.2-1.0); Calcium 8.5 MG/DL (8.5-10.1); Osmolality,Calculated 285.5 MOS/KG (273-304); Potassium 4.5 MMOL/L (3.5-5.1); Total Protein 6.2 G/DL (6.4-8.2)
[2021-01-06 07:32] LABS: CKMB % 2.4 %
[2021-01-06 07:33] LABS: High Sensitive Troponin I* 7626.1 ng/L (0-78)
[2021-01-06 08:41] LABS: Basophils % 0.1 % (0.0-0.8); Hemoglobin 10.3 GM/DL (14.0-18.0); Immature Granulocytes Absolute 0.13 #; Lymphocytes # 0.6 10*3/uL (1.4-4.0); Lymphocytes % 4.4 % (21.2-54.2); Mean Corpuscular HGB Conc 33.2 GM/DL (32-36); Mean Corpuscular Volume 100.3 FL (87-102); Mean Platelet Volume 12.6 FL (9.6-12.0); Monocytes % 6.4 % (1.7-12.7); Neutrophils % 88.1 % (38.7-73.9); Platelet Count 136 T/CUMM (130-400); Red Blood Count 3.09 MC/CUMM (3.8-5.5); Red Cell Distribution Width 12.7 % (9.3-17.3)
[2021-01-06 08:59] LABS: Lymphocytes 6 % (20-55); Platelet Estimate Adequate; Segmented Neutrophils 91 % (50-85); Total Cells Counted 100
[2021-01-06 09:00] LABS: Hypochromasia 1+; Microcytosis 1+
[2021-01-06] MEDS: PANTOPRAZOLE 40 MG TABLET PO SCH (09:16)
[2021-01-06] MEDS: DOCUSATE SODIUM 100 MG CAPSULE PO SCH (09:16)
[2021-01-06] MEDS: CELECOXIB 200 MG CAPSULE PO SCH (09:17)
[2021-01-06] MEDS: FERROUS SULFATE 325 MG TABLET PO SCH (09:17)
[2021-01-06] MEDS: ASPIRIN EC 325 MG TABLET PO SCH (09:17)
[2021-01-06] MEDS: ASCORBIC ACID 500 MG TABLET PO SCH ×2 (09:17→20:42)
[2021-01-06] MEDS: GABAPENTIN 600 MG TABLET PO SCH (09:17)
[2021-01-06] MEDS: CHLORHEXIDINE 0.12% ORAL RINSE 60 ML BOTTLE SWISH/SPIT SCH ×2 (09:20→20:42)
[2021-01-06] MEDS: ATORVASTATIN 40 MG TABLET PO SCH (20:42)
[2021-01-07] MEDS: INSULIN REGULAR 100 UNIT/ML SUBCUT SCH ×3 (00:01→10:52)
[2021-01-07 07:59] LABS: Basophils % 0.1 % (0.0-0.8); Hematocrit 30.5 VOL% (42.0-52.0); Hemoglobin 9.7 GM/DL (14.0-18.0); Immature Granulocytes % 0.8 %; Lymphocytes # 0.9 10*3/uL (1.4-4.0); Lymphocytes % 6.9 % (21.2-54.2); Mean Corpuscular HGB Conc 31.8 GM/DL (32-36); Mean Platelet Volume 12.2 FL (9.6-12.0); Monocytes % 8.9 % (1.7-12.7); Neutrophils % 83.3 % (38.7-73.9); Platelet Count 149 T/CUMM (130-400); Red Blood Count 2.99 MC/CUMM (3.8-5.5); Red Cell Distribution Width 12.6 % (9.3-17.3); White Blood Count 12.3 T/CUMM (4-12)
[2021-01-07] MEDS: DOCUSATE SODIUM 100 MG CAPSULE PO SCH (08:13)
[2021-01-07] MEDS: ASPIRIN EC 325 MG TABLET PO SCH (08:14)
[2021-01-07] MEDS: PANTOPRAZOLE 40 MG TABLET PO SCH (08:14)
[2021-01-07] MEDS: FERROUS SULFATE 325 MG TABLET PO SCH (08:14)
[2021-01-07] MEDS: CELECOXIB 200 MG CAPSULE PO SCH (08:14)
[2021-01-07] MEDS: GABAPENTIN 600 MG TABLET PO SCH (08:15)
[2021-01-07] MEDS: ASCORBIC ACID 500 MG TABLET PO SCH ×2 (08:15→20:19)
[2021-01-07] MEDS: CHLORHEXIDINE 0.12% ORAL RINSE 60 ML BOTTLE SWISH/SPIT SCH ×2 (08:16→20:19)
[2021-01-07 08:23] LABS: Albumin 3.4 G/DL (3.4-5.0); Bilirubin,Direct 0.15 MG/DL (0.0-0.20); Bilirubin,Total 0.6 MG/DL (0.2-1.0); Calcium 8.2 MG/DL (8.5-10.1); Osmolality,Calculated 281.8 MOS/KG (273-304); Potassium 4.4 MMOL/L (3.5-5.1); Total Protein 6.6 G/DL (6.4-8.2)
[2021-01-07] MEDS: ATORVASTATIN 40 MG TABLET PO SCH (20:19)
[2021-01-08 06:27] LABS: Basophils % 0.2 % (0.0-0.8); Eosinophils # 0.1 10*3/uL (0.0-0.87); Eosinophils % 0.5 % (0.00-10.9); Hematocrit 33.8 VOL% (42.0-52.0); Hemoglobin 11.2 GM/DL (14.0-18.0); Immature Granulocytes % 0.6 %; Immature Granulocytes Absolute 0.07 #; Lymphocytes # 2.5 10*3/uL (1.4-4.0); Lymphocytes % 19.7 % (21.2-54.2); Mean Corpuscular HGB Conc 33.1 GM/DL (32-36); Mean Corpuscular Volume 100.9 FL (87-102); Mean Platelet Volume 12.5 FL (9.6-12.0); Monocytes % 13.8 % (1.7-12.7); Neutrophils % 65.2 % (38.7-73.9); Platelet Count 202 T/CUMM (130-400); Red Blood Count 3.35 MC/CUMM (3.8-5.5); Red Cell Distribution Width 12.6 % (9.3-17.3); White Blood Count 12.5 T/CUMM (4-12)
[2021-01-08 06:47] LABS: Calcium 8.5 MG/DL (8.5-10.1); Osmolality,Calculated 282.5 MOS/KG (273-304); Potassium 3.8 MMOL/L (3.5-5.1)
[2021-01-08] MEDS: DOCUSATE SODIUM 100 MG CAPSULE PO SCH (09:37)
[2021-01-08] MEDS: GABAPENTIN 600 MG TABLET PO SCH (09:37)
[2021-01-08] MEDS: ASPIRIN EC 325 MG TABLET PO SCH (09:37)
[2021-01-08] MEDS: CELECOXIB 200 MG CAPSULE PO SCH (09:37)
[2021-01-08] MEDS: FERROUS SULFATE 325 MG TABLET PO SCH (09:37)
[2021-01-08] MEDS: PANTOPRAZOLE 40 MG TABLET PO SCH (09:38)
[2021-01-08] MEDS: CHLORHEXIDINE 0.12% ORAL RINSE 60 ML BOTTLE SWISH/SPIT SCH (09:38)
[2021-01-08] MEDS: ASCORBIC ACID 500 MG TABLET PO SCH (09:38)
[2021-01-08 12:43] VITALS: BP 130/68
== END 2021-01-08 12:54 | disposition home health service (06) | DRG 234 ==
LOC: INTOOBSV 16:57 → N.TELES 16:57 → SUATTDRO 16:57 → N.TELES 12-29 16:31 → N.CVR 01-04 09:40 → N.ICU 01-05 10:21 → N.TELES 01-05 17:22
PROVIDERS: ADMIT Internal Medicine; ATTEND Internal Medicine Cardiovascular Disease